=== PATIENT | female | born 1975 | race Caucasian/White ===

== ENCOUNTER 2025-05-06 12:42 | Outpatient (REF) | payer OTHER, SELFPAY ==
--- NOTE | 2025-05-06 12:48 | EMG_ITS ---
Chief complaint: Right worse than left hand numbness Reason for referral: Evaluate for Carpal Tunnel Syndrome versus ulnar neuropathy Referred by: Dr. Salvador Procedure done: Right upper extremity NCS/EMG order, left NCS per patient request Precautions and/or limitations: None The limb temperature was monitored continuously and remained between 32-36 degrees C during the performance of the NCS. Nerve Conduction Studies Anti Sensory Summary Table ?Stim Site NR Onset (ms) Norm Onset (ms) Peak (ms) Norm Peak (ms) O-P Amp (?V) Norm O-P Amp Site1 Site2 Delta-0 (ms) Dist (cm) Leonardo (m/s) Norm Leonardo (m/s) Left Median Anti Sensory (2nd Digit) Wrist NR <3.6 >10 Wrist 2nd Digit 14.0 Right Median Anti Sensory (2nd Digit) Wrist NR <3.6 >10 Wrist 2nd Digit 14.0 Right Radial Anti Sensory (Thumb) Forearm ? 1.5 2.1 <3.1 34.0 Forearm Thumb 1.5 0.0 Left Ulnar Anti Sensory (5th Digit) Wrist ? 2.3 3.2 <3.7 47.8 >15.0 Wrist 5th Digit 2.3 14.0 61 Right Ulnar Anti Sensory (5th Digit) Wrist ? 2.4 3.3 <3.7 29.8 >15.0 Wrist 5th Digit 2.4 14.0 58 Motor Summary Table ?Stim Site NR Onset (ms) Norm Onset (ms) O-P Amp (mV) Norm O-P Amp iAmp (mV) Amp (1st) (%) Site1 Site2 Delta-0 (ms) Dist (cm) Leonardo (m/s) Norm Leonardo (m/s) Left Median Motor (Abd Poll Brev) Wrist ? 10.5 <3.9 5.1 >4.5 6.2 100.0 Elbow Wrist 3.4 16.0 47 >45 Elbow ? 13.9 5.1 6.2 100.0 Right Median Motor (Abd Poll Brev) Wrist ? 4.8 <3.9 1.7 >4.5 2.0 100.0 Elbow Wrist 4.1 17.0 41 >45 Elbow ? 8.9 0.7 0.8 41.2 Left Ulnar Motor (Abd Dig Minimi) Wrist ? 2.9 <3.0 6.2 >5 7.3 100.0 B Elbow Wrist 2.4 14.5 60 >45 B Elbow ? 5.3 5.9 7.0 95.2 A Elbow B Elbow 1.8 10.0 56 >45 A Elbow ? 7.1 5.7 6.7 91.9 Right Ulnar Motor (Abd Dig Minimi) Wrist ? 2.8 <3.0 7.3 >5 9.5 100.0 B Elbow Wrist 2.6 16.5 63 >45 B Elbow ? 5.4 7.5 9.6 102.7 A Elbow B Elbow 1.2 10.0 83 >45 A Elbow ? 6.6 7.5 9.6 102.7 EMG ?Side Muscle Nerve Root Ins Act Fibs Psw Amp Dur Poly Recrt Int Pat Comment Right 1stDorInt Ulnar C8-T1 Nml Nml Nml Nml Nml 0 Nml Complete Right FlexCarRad Median C6-7 Nml Nml Nml Nml Nml 0 Nml Complete Right Biceps Musculocut C5-6 Nml Nml Nml Nml Nml 0 Nml Complete Right Triceps Radial C6-7-8 Nml Nml Nml Nml Nml 0 Nml Complete Right Deltoid Axillary C5-6 Nml Nml Nml Nml Nml 0 Nml Complete FINDINGS: Right median motor nerve showed prolonged distal latency, small amplitude and slow conduction velocity. Left median motor nerve showed prolonged distal latency, normal amplitude and normal conduction velocity. Bilateral median sensory nerves absent response. All other nerves tested were within normal. Concentric needle EMG was performed in selected muscles of the right upper extremity. Study did not reveal signs of electric abnormalities as shown in the table above. IMPRESSION: 1. This is an abnormal study. 2. There is electrodiagnostic evidence for bilateral moderate-severe median neuropathy at the wrist, consistent with carpal tunnel syndrome, right worse than left. 3. There is no electrodiagnostic evidence for ulnar neuropathy, brachial plexopathy, or cervical radiculopathy. Thank you for your kind referral. Sonya Virgen MD, ARMANDO Board Certified, [place] [employer] and [employer] (ABPMR) Board Certified, [place] Board of Electrodiagnostic Medicine (ABEM) CODIN [phone] [facility]
--- OUTSIDE RECORDS SUMMARY | 2025-05-06 15:33 | XMS_ITS | Clinical Summary ---
Author Organization [employer] Address [address] [place] [address] [address] [place] [address] Care Team Providers Care Space Systems Operations Manager Name Role Phone Unavailable Primary Care Provider Unavailabl e Social History Tobacco Use Types Packs/Day Years Used Date Smoking Tobacco: Never Assessed Comments Unknown Sex and Gender Information Value Date Recorded Sex Assigned at Female 10/28/2023 9:15 AM EDT Legal Sex Female 9:04 AM EDT Gender Identity Female 10/28/2023 9:16 AM EDT Sexual Orientation Choose not to disclose 2023 9:15 AM EDT Plan of Treatment Health Maintenance Due Date Last Done Comments CT Colonography 1974 Colonoscopy 1974 Colorectal Cancer Screening 1974 Dental Oral Exam 1974 Dental Prophylaxis 1974 Dental X-Ray: Bitewings 1974 Dental X-Ray: Full Mouth 1974 Depression Screening 1974 FIT DNA/Cologuard 1974 FIT 1974 FOBT 1974 Sigmoidoscopy 1974 Disability Screening 1974 Alcohol/Substance Use Screening 1986 Tobacco Screening 1986 Family Planning (PISQ) 1989 Pap Smear 11/14/1995 Cervical Cancer Screening 2004 HPV/Cotest 2004 Hepatitis B Vaccines (2 of 3 - 19+ 3-dose series) 07/21/2012 06/23/2012 Mammogram 2014 DTaP/Tdap/Td Vaccines (3 - Td or Tdap) 09/23/2021 09/24/2011, 12/31/2007 Pneumococcal Vaccine: 50+ Years (2 of 2 - PCV) 2024 09/24/2011, 01/28/2009 Zoster Vaccines (1 of 2) 2024 COVID-19 Vaccine (4 - 2024- season) 2025 06/02/2021, 10/08/2020, 09/17/2020 Influenza Vaccine (#1) 2025 , 04/20/2020, 05/16/2015, Additional history exists RSV Patients and Patients Aged 60 years or older (1 - 1-dose 75+ series) 2049 HIB Vaccines Aged Out No longer eligi ble based on patient's age to complete this topic HPV Vaccines Aged Out No longer eligi ble based on patient's age to complete this topic Hepatitis A Vaccines Aged Out No long er eligible based on patient's age to complete this topic IPV Vaccines Aged Out No longer eligi ble based on patient's age to complete this topic Meningococcal B Vaccine Aged Out No l onger eligible based on patient's age to complete this topic Meningococcal Vaccine Aged Out No joyce jose cruz eligible based on patient's age to complete this topic RSV under 20 months Aged Out No longe r eligible based on patient's age to complete this topic Rotavirus Vaccines Aged Out No longer eligible based on patient's age to complete this topic
--- OUTSIDE RECORDS SUMMARY | 2025-05-06 15:33 | XMS_ITS ---
Author Name [facility] Organization Unknown Care Team Organization Name Specialty Phone Email Start Date End Da te [facility] Samreen Stokes Primary Care 11/05/2022 02/17/2024
--- OUTSIDE RECORDS SUMMARY | 2025-05-06 15:33 | XMS_ITS | Encounter Summary ---
Author Organization [facility] Address [address] [place] [address] Care Team Providers Care Range Conservationist Name Role Phone Samreen Duque MD Primary Care Prov ider Encounter Details Date Type Department Care Team (Late st Contact Info) Description 04/12/2025 Results Follow-Up Obstetrics [facility]necology - [address] [place] [id number] Tatyana Rosenberg RN Social History Tobacco Use Types Packs/Day Years Used Date Smoking Tobacco: Never Smokeless Tobacco: Never Alcohol Use Standard Drinks/Week Comments No 0 (1 standard drink = 0.6 oz pur e alcohol) Housing Instability Answer Date Recorde d Are you worried that in the next 2 months you may not have stable housing? No 09/28/2024 Food Access & Nutrition Answer Date Rec orded Do you have access to a vari ety of food including fruits and vegetables? Yes 09/28/2024 Access to Healthcare Answer Date Record ed Within the last 3 months, ho w many times did you visit the emergency department for your medical care? 0 09/28/2024 Health Literacy Answer Date Recorded How often do you need to hav e someone help you when you read instructions, pamphlets, or other written material from your doctor or pharmacy? Never 09/28/2024 Caregiver: How often do you need to have someone help you when you read instructions, pamphlets, or other written material from your doctor or pharmacy? Not on file 09/28/2024 Financial Risk Answer Date Recorded How hard is it for you to pa y for the very basics like food, housing, medical care, and air conditioning / heating? Not very hard 09/28/2024 Transportation Answer Date Recorded Has the lack of transportati on kept you from meetings, work, or from getting things needed for daily living? No Has the lack of transportati on kept you from medical appointments or from getting medications? No 09/28/2024 Social Isolation Answer Date Recorded How often do you feel lonely or isolated from th ose around you? Never 09/28/2024 Food Risk Answer Date Recorded Within the past 12 months we worried whether our food would run out before we got money to buy more. Never true 09/28/2024 Within the past 12 months th e food we bought just didn't last and we didn't have money to get more. Never true 09/28/2024 Dependent Care Answer Date Recorded Do you need help finding or paying for care for your loved ones. For example, child nutrition manager or elderly care for an older adult? No 09/28/2024 Education Answer Date Recorded Do you think completing more education or training, like finishing a GED, going to college, or learning a trade, would be helpful for you? No 09/28/2024 Employment and Income Answer Date Recor ded During the last four weeks, have you been actively looking for work? No 09/28/2024 Living Situation Answer Date Recorded What is your living situation? Unrecognized valu e 09/28/2024 Comments No Sex and Gender Information Value Date Recorded Sex Assigned at Not on file Legal Sex Female 3:48 PM EST Gender Identity Not on file Sexual Orientation Not on file documented as of this encounter Plan of Treatment Upcoming Encounters Date Type Department Care Team (Late st Contact Info) Description 05/26/2025 3:30 PM EST [facility] [address] [place] [address] Camila Vance CNM [address] [place] [phone] 06/15/2025 2:30 PM EST Office Visit Endocrinology - [address] [phone] Debra Ty PA [address] [place] [address] 06/21/2025 10:00 AM EST Appointment [facility]oscopy [address] [place] [phone] Ej Betancur DO [address] [place] [address] 08/06/2025 1:15 PM EST Office Visit Adult Medicine [address] [phone] Samreen Duque MD [address] [place] [address] documented as of this encounter Visit Diagnoses Not on filedocumented in this encounter Additional Health Concerns Assessment Noted Time PHQ-9 Depression Total Score: 0 09/29/19 25 9:43 AM EDT documented as of this encounter Care Teams Range Conservationist Relationship Specialty Start Date End Date Samreen Duque MD [address] [place] [address] PCP - General 06/06/22 documented as of this encounter
--- OUTSIDE RECORDS SUMMARY | 2025-05-06 15:33 | XMS_ITS | Clinical Summary ---
Author Organization [facility] [address] [place] [address] [place] [phone] Phone Care Team Providers Care Obgyn Specialist Name Role Phone Samreen Duque MD Primary Care Prov ider Allergies Active Allergy Reactions Criticality Noted Date Comments Atorvastatin Calcium Pain 09/08/2013 Pain in soles Myalgia and joint pain Ciprofloxacin-Hydrocortisone 016 vomiting Lisinopril Pain 08/25/2019 Myalgia and joint pain Simvastatin Pain 09/08/2013 Myalgia and joint pain Medications albuterol HFA (PROAIR HFA ; PROVENTIL HFA ; VENTOLIN HFA) 90 mcg/actuation inhaler Inhale 2 Puffs into the lungs every 4 hours as needed for Cough, Wheezing or Shortness of Breath. 3 Active diclofenac (VOLTAREN) 1 % topical gel Apply 1 Film topically every 4 hours as needed (pain). 2 Active blood-glucose meter kit 1 Device by Does not apply route daily. Dx Code E11.65 3 Active dulaglutide (Trulicity) 0.75 mg/0.5 mL pen injector injectionIndica tions:Type 2 diabetes mellitus with diabetic nephropathy, unspecified whether buttermaker insulin use ([facility] V24, [facility] V28) Inject 0.5 mL (0.75 mg total) under the skin every 7 (seven) days. 6 mL 3 5 Active empagliflozin (JARDIANCE) 10 mg tablet Take 1 tablet (10 mg total) by mouth 1 (one) time each day. 30 each 11 5 Active meloxicam (MOBIC) 15 mg tablet Take 1 tablet (15 mg total) by mouth 1 (one) time each day. 30 tablet 5 Active metFORMIN XR (GLUCOPHAGE-XR) 500 mg 24 hr tablet TAKE 4 TABLETS BY MOUTH DAILY WITH BREAKFAST 360 each 1 5 Active blood sugar diagnostic (FreeStyle Lite Strips) test strip Use as instructedUSE TWICE DAILY 200 each 3 5 Active freestyle (FreeStyle Lancets) 28 gauge lancets Apply 1 Each topically 2 times daily as needed for Other (maintain blood glucose). 200 each 3 5 Active losartan-hydroC HLOROthiazide (HYZAAR) 100-12.5 mg per tablet TAKE ONE TABLET BY MOUTH EVERY DAY 90 tablet 5 Active estradioL (ESTRACE) 0.01 % (0.1 mg/gram) vaginal cream Apply 1 gram to affected area twice daily for 2 weeks, then up to three times per week as needed 34 g 3 5 Active Active Problems Problem Noted Date Diagnosed Date Primary hypertension 09/28/2024 Assessment & Plan (02/02/2025 3:45 PM EDT): The patient's antihypertensive regimen is based on their underlying medical issues. At the time of this visit, the blood pressure is well controlled on losartan 100 mg, and hctz 12.5mg. Will continue same medication. Assessment & Plan (09/28/2024 10:12 AM EDT): Fibromyalgia 05/29/2023 Influenza A 08/31/2022 Type II diabetes mellitus wi th renal manifestations ([facility] V24, [facility] V28) 02/01/2021 Assessment & Plan (09/28/2024 10:12 AM EDT): Microalbuminuria 02/01/2021 Obesity (BMI 30.0-34.9) 02/01/2021 Menstrual migraine without s tatus migrainosus, not intractable 07/31/2020 Type 2 diabetes mellitus wit h polyneuropathy ([facility] V24, [facility] V28) 08/30/2017 Overview (05/21/2024): EMG/NCV 08/2017 (Dr. Virgen) - symmetrical distal sensorimotor polyneuropathy sural nerves Assessment & Plan (02/02/2025 3:45 PM EDT): Fair control of diabetes. A1C: 7.5. Patient will continue with yearly Podiatric and Ophthomologic evaluations.Will continue Angiotensin Converting Enzyme Inhibitor for renal protection. Jardiance, Trulicity and metformin. Follows with endo, pending appt on the . Will follow up in 6 months. Orders: Lipid panel with reflex to direct LDL; Future Thyroid stimulating hormone with reflex to free t4 and free t3; Future Cortisol; Future Assessment & Plan (09/28/2024 10:12 AM EDT): Vitamin D deficiency 05/08/2013 Hyperlipidemia 08/05/2012 Overview (05/21/2024): Last Assessment & Plan: The patient has a history of hyperlipidemia. She also has a history of obesity, hypertension, diabetes mellitus type 2, and family history of premature CAD. Therefore, we need to be aggressive in her cholesterol control. The patient has a history of myalgias with the use of statins in the past. She has tried atorvastatin and atorvastatin. As such, we will start the patient on ezetimibe 10 mg right daily. We will repeat her lipid panel in 2 months. Depending on her lipid panel results while on the ezetimibe, then we will decide if need to consider further modification to her hyperlipidemia treatment regimen. Assessment & Plan (09/28/2024 10:12 AM EDT): Asthma 06/23/2012 Depression 09/04/2011 Encounters Date Type Department Care Team Description 04/12/2025 Results Follow-Up [facility] [address] [place] [phone] Tatyana Rosenberg RN 04/09/2025 3:30 PM EDT Office Visit Ob[facility]s [facility] [address] [place] [address] Camila Vance CNM Vaginal dryness, menopausal (Primary Dx); Pelvic pain 03/17/2025 3:30 PM EDT Office Visit Endocrinology [address] [phone] Debra Ty PA Type 2 diabetes mellitus with polyneuropathy (CMS/HCC V24, CMS/HCC V28) (Primary Dx) from Last 3 Months Immunizations Immunization Administration Dates Next Due Hepatitis B (Dmiwlyk-U-Pgqjo , Recombivax HB-Adult) 19yo and older 06/23/2012 Influenza Quadravalent, MDCK , 0.5ml, preservative free (Flucelvax) 6mo and older 04/20/2020 Influenza trivalent, 0.5mL, preservative free (Fluarix; FluLaval; Fluzone) ages 6mo and older (Afluria) 3 years and older 04/03/2024,05/16/2015 Influenza trivalent, with pr eservative (Fluzone; Afluria) 6mo and older 03/28/2021 Influenza, Unspecified 03/23/2009,04/22/2006 PPD Test 11/24/2014,09/08/2013,04/30/2012 [employer] SARS-CoV-2 COVID-19, mRNA, LNP-S, preservative free 06/02/2021 Pneumococcal polysaccharide 23 valent (Pneumovax 23) 2yo and older 09/24/2011,01/28/2009 Td Tetanus diptheria (Tdvax) 7yo and older 10/17 Tdap Tetanus diptheria acell ular pertussis (Boostrix; Adacel) 7yo and older 09/24/2011,12/31/2007 Surgical History Surgery Date Site/Laterality Comments BLADDER SUSPENSION PROCEDURE: HISTORICAL BLADDER SUSPENSION CERVICAL BIOPSY W/ LOOP ELECTRODE EXCISION 1999 PROCEDURE: OR CONIZATION CERVIX W/WO D&C RPR ELTRD EXC TUBAL LIGATION PROCEDURE: HISTORICAL TUBAL LIGATION ESOPHAGOGASTRODUODENOSCOPY 03/19/16 PROCEDURE: OR ESOPHAGOGASTRODUODENOSCOPY TRANSORAL DIAGNOSTIC; COMMENT: nodular antral gastritis; gastritis with H. pylori on bxy; nl duodenal bxys Medical History Medical History Date Comments Diabetes mellitus, type 2 (C MS/HCC V24, CMS/HCC V28) DX:Diabetes mellitus, type 2 (HCC) Anxiety DX:Anxiety Onychomycosis of toenail 01/11/2015 DX:Onyc homycosis of toenail Helicobacter pylori gastritis 03/22/2016 DX :Helicobacter pylori gastritis Essential hypertension 02/11/2019 DX:Essent ial hypertension History of COVID-19 12/19/2021 DX:History o f COVID-19 Positive TATY (antinuclear antibody) 10/29/2022 DX:Positive TATY (antinuclear antibody) H. pylori infection DX:H. pylori infection Esophageal reflux DX:Esophageal reflux Family History Medical History Relation Name Comments Diabetes Brother x2 Hypertension Father CAD Diabetes Mother Diabetes Sister twin Breast cancer Neg Hx Colon cancer Neg Hx Ovarian cancer Neg Hx Uterine cancer Neg Hx Relation Name Status Comments Brother Alive Father Alive Maternal Grandfather Maternal Grandmother Alive Mother Alive Paternal Grandfather Paternal Grandmother Sister Alive Social History Tobacco Use Types Packs/Day Years Used Date Smoking Tobacco: Never Smokeless Tobacco: Never Tobacco Cessation:Counseling Given: Not Answered Alcohol Use Standard Drinks/Week Comments No 0 [...] care for your loved ones. For example, children librarian or elderly care for an older adult? [...] on file Sexual Orientation Not on file Obstetrics History Para Term AB IAB SAB Ectopic Multiple Livin g Live Births 3 3 3 Date Outcome GA Total Labor Labor/2nd/3rd Weight Sex Type Anes PTL Any A1 A5 Name Clin Term Term Term Last Filed Vital Signs Vital Sign Reading Time Taken Comments Blood Pressure 170/89 04/09/2025 3:27 PM EDT Pulse 83 04/09/2025 3:27 PM EDT Temperature 36.6 C (97.9 F) 03/17/2025 3:45 PM EDT Respiratory Rate 15 12/10/2024 8:52 AM EDT Oxygen Saturation - - Inhaled Oxygen Concentration - - Weight 72.6 kg (160 lb) 04/09/2025 3:27 PM EDT Height 152.4 cm (5') 03/17/2025 3:45 PM EDT Body Mass Index 31.25 03/17/2025 3:45 PM EDT Plan of Treatment Upcoming Encounters Date Type Department Care Team (Late st Contact Info) Description 05/26/2025 3:30 PM EST Office Visit Obstetrics and Gynecology - [address] [phone] Camila Vance, [facility] [address] [place] [phone] 06/15/2025 2:30 PM EST Office Visit Endocrinology [address] [phone] Debra Ty PA [address] [place] [address] 06/21/2025 10:[address] [facility] [address] [place] [phone] Ej Betancur, [address] [address] 08/06/2025 1:15 PM EST Office Visit [facility] - [address] [phone] Samreen Duque MD [address] [place] [address] Health Maintenance Due Date Last Done Comments Colorectal Cancer Screening: Colonoscopy 1974 Diabetes: Annual Foot Exam 05/29/2024 05/29/2023 RSV Immunization Adult Patients (1 - Risk 50-74 years 1-dose series) 2024 Breast Cancer Screening 11/30/2024 12/01/19, 11/20/2021, 03/11/2020, Additional history exists COVID-19 Vaccine ( season) 2025 06/02/2021, 10/08/2020, 09/17/2020 Influenza Vaccine (#1) 2025 , 03/28/2021, 04/20/2020, Additional history exists Diabetes: Blood Sugar Control Test (HGBA1C) 09/14/2025 03/17/2025, 12/02/2024, 07/20/2024, Additional history exists Social Influencers of Health Screening 09/28/2025 09/28/2024 Diabetes: Annual Retina Eye Exam 11/03/2025 11/03/2024, 08/01/2023 Diabetes: Annual Urine Albumin-Creatinine Ratio (uACR) 12/02/2025 12/02/2024, 03/23/2024 Diabetes: Annual GFR (Glomerular Filtration Rate) 12/02/2025 12/02/2024, 09/10/2022 Hypertension/CHF/CAD Annual BMP Blood Test 12/02/2025 12/02/2024, 09/10/2022 Cervical Cancer Screening: HPV 09/18/2028 09/19/2023 Cholesterol Screening (Lipid Panel) 02/15/2030 02/15/2025, 12/02/2024, 12/24/2022 DTaP,Tdap,and Td Vaccines (4 - Td or Tdap) 10/18/2031 10/17/2021, 09/24/2011, 12/31/2007 Pneumococcal Vaccine: 50+ Years Discontinued 09/24/2011, 01/28/2009 Hepatitis B Vaccines Discontinued 06/23/2012 HIV Screening Completed 03/08/2020 Hepatitis C Screening Completed 03/08/2020 Depression Screening Completed 09/28/2024 HIB Vaccines Aged Out No longer eligi [...] on patient's age to complete this topic MMR Vaccines Aged Out No longer eligi ble based on patient's age to complete this topic Meningococcal ACWY Vaccine Aged Out N o longer eligible based on patient's age to complete this topic Meningococcal B Vaccine Aged Out No l onger eligible based on patient's age to complete this topic RSV Immunization Patients Under 20 months Aged Out No longer eligible based on patient's age to complete this topic Varicella Vaccines Aged Out No longer eligible based on patient's age to complete this topic Zoster Vaccines Discontinued Procedures Procedure Name Priority Date/Time Associated Diagnosis Comments TRICHOMONAS VAGINALIS ANTIGEN Routine 04/09/2025 3:45 PM EDT Vaginal dryness, menopausal WET PREP, GENITAL Routine 04/09/2025 3:4 5 PM EDT Vaginal dryness, menopausal HEMOGLOBIN A1C Routine 03/17/2025 4:11 PM EDT Type 2 diabetes mellitus with polyneuropathy (CMS/HCC V24, CMS/HCC V28) POC GLUCOSE Routine 03/17/2025 3:47 PM EDT Type 2 diabetes mellitus with polyneuropathy (CMS/HCC V24, CMS/HCC V28) LIPID PANEL WITH REFLEX TO DIRECT LDL Routine 02/15/2025 8:50 AM EDT Type 2 diabetes mellitus with polyneuropathy (CMS/HCC V24, CMS/HCC V28) THYROID STIMULATING HORMONE WITH REFLEX TO FREE T4 AND FREE T3 Routine 02/15/2025 8:50 AM EDT Type 2 diabetes mellitus with polyneuropathy (CMS/HCC V24, CMS/HCC V28) CORTISOL Routine 02/15/2025 8:50 AM EDT Type 2 diabetes mellitus with polyneuropathy (CMS/HCC V24, CMS/HCC V28) MICROALBUMIN CREATININE URINE RATIO Routine 12/02/2024 2:26 PM EDT Type 2 diabetes mellitus with diabetic nephropathy, unspecified whether buttermaker insulin use (CMS/HCC V24, CMS/HCC V28) BASIC METABOLIC PANEL Routine 12/02/2024 2:26 PM EDT Type 2 diabetes mellitus with diabetic nephropathy, unspecified whether care home insulin use (CMS/HCC V24, CMS/HCC V28) HM HPV Routine 09/19/2023 DIABETES EYE EXAM Routine 08/01/2023 DIABETES FOOT EXAM Routine 05/29/2023 SCREENING MAMMOGRAPHY BI 2-VIEW BREAST INC CAD Routine 11/30/2022 3:37 PM EDT Encounter for screening mammogram for malignant neoplasm of breast HEPATITIS C SCREENING Routine 03/08/2020 HIV SCREENING Routine 03/08/2020 from Last 3 Months or Most Recently Relevant to Health Maintenance Results * Trichomonas vaginalis antigen (04/09/2025 3:45 PM EDT) Trichomonas vaginalis Negative Negative 04/09/2025 6:[address] [facility] Swab Cervix uteri structure / Unknown Non-blood Collection / Unknown 04/09/2025 3:45 PM EDT 04/09/2025 3:45 PM EDT Camila OLGUIN LAB MICROBIOLOGY - GENERAL O RDERABLES Final Result [facility] [address] [place] [address], * Wet prep, genital (04/09/2025 3:45 PM EDT) Clue Cells, Wet Prep Negative Negative 04/09/2025 6:[address] [facility] Yeast, Wet Prep Negative Negative 04/09/2025 6:[address] [facility] Trichomonas, Wet Prep Indeterminate Negative 04/09/2025 6:[address] [facility] Comment:Refer to Trichomonas antigen. Swab Cervix uteri structure / Unknown Non-blood Collection / Unknown 04/09/2025 3:45 PM EDT 04/09/2025 3:45 PM EDT Camila Vance CNM LAB MICROBIOLOGY - GENERAL O RDERABLES Final Result [facility] [address] [place] [address], [place] [phone] * Hemoglobin A1c (03/17/2025 4:11 PM EDT) Pathologist [facility] Hemoglobin A1C 6.3 <6.5 % LAB CHEMISTRY METHOD 03/17/2025 8:[address] [facility] Mean Bld Glu Estim. 134 mg/dL LAB CHEMISTRY METHOD 03/17/2025 8:[address] [facility] Blood Venous blood specimen / Unknown Venipuncture / Unknown 03/17/2025 4:11 PM EDT 03/17/2025 4:11 PM EDT Debra BRICE LAB BLOOD ORDERABLES Final Result [facility] [address] [place] [address], [place] [phone] * POC glucose manually resulted (03/17/2025 3:47 PM EDT) [facility] Glucose POC 117 mg/dL Blood Capillary blood specimen / Unknown 03/17/2025 3:47 PM EDT Debra BRICE POINT OF CARE TEST ENTER/ED IT ORDERABLES Final Result * Thyroid stimulating hormone with reflex to free t4 and free t3 (02/15/2025 8:50 AM EDT) Pathologist [facility] TSH 1.37 0.40 - 4.00 mcIU/mL LAB CHEMISTRY METHOD 02/15/2025 12:[address] [facility] Blood Venous blood specimen / Unknown Venipuncture / Unknown 02/15/2025 8:50 AM EDT 02/15/2025 8:50 AM EDT us Samreen Duque MD LAB BLOOD ORDERABL ES Final Result [facility] [address] [place] [address], [place] [phone] * (ABNORMAL) Lipid panel with reflex to direct LDL (02/15/2025 8:50 AM EDT) Cholesterol 241(H) 0 - 200 mg/dL LAB CHEMISTRY METHOD 02/15/2025 11:[address] [facility] Triglycerides 192(H) 0 - 150 mg/dL LAB CHEMISTRY METHOD 02/15/2025 11:[address] [facility] HDL 73 >=40 mg/dL LAB CHEMISTRY METHOD 02/15/2025 11:[address] [facility] LDL Calculated 130(H) 0 - 100 mg/dL LAB CHEMISTRY METHOD 02/15/2025 11:[address] [facility] Comment:Estimated LDL Calcul ated using equation: Total cholesterol - HDL cholesterol - (Triglycerides/5) VLDL Cholesterol Pipe 38.4 mg/dL LAB CHEMISTRY METHOD 02/15/2025 11:[address] [facility] Non HDL Chol. (LDL+VLDL) 168(H) <145 mg/dL LAB CHEMISTRY METHOD 02/15/2025 11:[address] [facility] Chol/HDL Ratio 3.3 0.0 - 4.4 LAB CHEMISTRY METHOD 02/15/2025 11:[address] [facility] Blood Venous blood specimen / Unknown Venipuncture / Unknown 02/15/2025 8:50 AM EDT 02/15/2025 8:50 AM EDT us Samreen Duque MD LAB BLOOD ORDERABL ES Final Result [facility] [address] [place] [address], [place] [phone] * Cortisol (02/15/2025 8:50 AM EDT) Cortisol 9.7 mcg/dL LAB CHEMISTRY METHOD 02/15/2025 12:[address] [facility] Blood Venous blood specimen / Unknown Venipuncture / Unknown 02/15/2025 8:50 AM EDT 02/15/2025 8:[address] [facility] - 02/15/2025 12:05 PM EDT CORTISOL REFERENCE RANGE 8 AM SPEC: 5.0-23.0 mcg/dL 4 PM SPEC: 3.0-16.0 mcg/dL 8 PM SPEC: <5.0 mcg/dL us Samreen Duque MD LAB BLOOD ORDERABL ES Final Result Performing Organization Address City/[facility]/ZIP Co de Phone Number [facility] [address] [place] [address], [place] [phone] * Microalbumin creatinine urine ratio (12/02/2024 2:26 PM EDT) Creatinine, Urine 86.0 mg/dL LAB CHEMISTRY METHOD 12/02/2024 5:[address] [facility] Microalb, Ur 10.9 0.0 - 29.0 mg/L LAB CHEMISTRY METHOD 12/02/2024 5:[address] [facility] Microalb/Creat Ratio 13 <30 mg/g creat LAB CHEMISTRY METHOD 12/02/2024 5:[address] [facility] Urine Urine specimen from urethra / Unknown Non-blood Collection / Unknown 12/02/2024 2:26 PM EDT 12/02/2024 2:26 PM EDT us Debra BRICE LAB URINE ORDERABLES Final Result [facility] [address] [place] [address], [place] [phone] * (ABNORMAL) Basic metabolic panel (12/02/2024 2:26 PM EDT) Sodium 134 133 - 145 mmol/L LAB CHEMISTRY METHOD [facility] Potassium 3.6 3.5 - 5.5 mmol/L LAB CHEMISTRY METHOD 12/02/2024 4:[facility] Chloride 100 96 - 110 mmol/L LAB CHEMISTRY METHOD 12/02/2024 4:29 PM [facility] CO2 28 21 - 32 mmol/L LAB CHEMISTRY METHOD 12/02/2024 4:29 PM [facility] Anion Gap 6 3 - 11 LAB CHEMISTRY METHOD 12/02/2024 4:29 PM [facility] Glucose 103(H) 70 - 100 mg/dL LAB CHEMISTRY METHOD 12/02/2024 4:29 PM [facility] BUN 14 5 - 25 mg/dL LAB CHEMISTRY METHOD 12/02/2024 4:29 PM [facility] Creatinine 0.62 0.50 - 1.10 mg/dL LAB CHEMISTRY METHOD 12/02/2024 4:29 PM [facility] eGFR 109 >=60 mL/min/1. 73m2 LAB CHEMISTRY METHOD 12/02/2024 4:29 PM [facility] Comment:Calculation based on the Chronic Kidney Disease Epidemiology Collaboration (CKD-EPI) equation refit without adjustment for race. BUN/Creatinine Ratio 22.6 LAB CHEMISTRY METHOD 12/02/2024 4:29 PM [facility] Calcium 9.4 8.5 - 10.5 mg/dL LAB CHEMISTRY METHOD 12/02/2024 4:29 PM [facility] Blood Venous blood specimen / Unknown Venipuncture / Unknown 12/02/2024 2:26 PM EDT 12/02/2024 2:26 PM EDT Debra BRICE LAB BLOOD ORDERABLES Final Result [facility] [address] [place] [address], [place] [phone] * Cervical Cancer Screening: HPV (09/19/2023) Pathologist [facility] Cervical Cancer Screening: HPV abstracted, negative Historical Provider MD HEALTH MAINTENANCE Final Result * Diabetes Eye Exam (08/01/2023) Pathologist [facility] Diabetes: Annual Retina Eye Exam abstracted [facility] Provider MD HEALTH MAINTENANCE Final Result * Diabetes Foot Exam (05/29/2023) Pathologist [facility] Diabetes: Annual Foot Exam abstracted Historical Provider MD HEALTH MAINTENANCE Final Result * SCREENING MAMMOGRAPHY BI 2-VIEW BREAST INC CAD (11/30/2022 3:37 PM EDT) Anatomical Region Laterality Modality Radiographic Ayaka ging 11/20/2021 4:54 PM EDT Narrative 12/04/2022 11:29 AM EDT This is a summary report. The complete report is available in the patient's medical record. If you cannot access the medical record, please contact the sending organization for a detailed fax or copy. BILATERAL 3D DIGITAL SCREENING MAMMOGRAM History: Routine screening. No current breast complaints. Comparison: Multiple priors dating back to 01/25/2018 Technique: Bilateral full-field digital 3D mammography was performed using standard CC and MLO projections CAD was used to evaluate this mammogram. Findings: Density: There are scattered areas of fibroglandular density-B RIGHT: No suspicious masses, groups of microcalcification or areas of architectural distortion identified. Stable typically benign parenchymal asymmetries LEFT: No suspicious masses, groups of microcalcifications or areas of architectural distortion identified. Stable typically benign parenchymal asymmetries IMPRESSION: : 1. No mammographic evidence of malignancy. BI-RADS Category 2 benign findings Recommendation: Routine annual screening mammography is recommended Procedure Note Jose L Castillo MD - 08/05/2023 This is a summary report. The complete report is available in thepatient's medical record. If you cannot access the medical record, pleasecontact the sending organization for a detailed fax or copy. BILATERAL 3D DIGITAL SCREENING MAMMOGRAM History: Routine screening. No current breast complaints. Comparison: Multiple priors dating back to 01/25/2018 Technique: Bilateral full-field digital 3D mammography was performed usingstandard CC and MLO projections CAD was used to evaluate this mammogram. Findings: Density: There are scattered areas of fibroglandular density-B RIGHT: No suspicious masses, groups of microcalcification or areas ofarchitectural distortion identified. Stable typically benign parenchymalasymmetries LEFT: No suspicious masses, groups of microcalcifications or areas ofarchitectural distortion identified. Stable typically benign parenchymalasymmetries IMPRESSION: : 1. No mammographic evidence of malignancy. BI-RADS Category 2 benign findings Recommendation: Routine annual screening mammography is recommended Rosa OLGUIN IMG XR PROCEDURES Final Result * HIV Screening (03/08/2020) HIV Screening abstracted Historical Provider HEALTH MAINTENANCE Final Result * Hepatitis C Screening (03/08/2020) Hepatitis C Screening abstracted Historical Provider HEALTH MAINTENANCE Final Result from Last 3 Months or Most Recently Relevant to Health Maintenance Insurance [facility] Care Teams Obgyn Specialist Relationship Specialty Start Date End Date Samreen Duque MD [address] [place] [phone] PCP - General 06/06/22
== END 2025-05-06 12:43 | disposition home or self-care (01) ==
LOC: HO.NEURO 12:42
PROVIDERS: PCP Internal Medicine
DX: R20.0 Anesthesia of skin (principal); R20.2 Paresthesia of skin
CPT/HCPCS: 95886; 95911

== ENCOUNTER → 2025-05-06 12:48 | Outpatient (BNV) | payer OTHER, SELFPAY | PROVIDERS: PCP Internal Medicine; Visit Provider Physical Medicine & Rehabilitation | DX: G56.13 Other lesions of median nerve, bilateral upper limbs (principal) | CPT/HCPCS: 95886; 95911 ==